=== PATIENT | female | born 1995 | race Caucasian/White ===

== ENCOUNTER 2017-03-25 05:41 | Emergency (ER) | payer MEDICAID, OTHER ==
[~2017-03-25] VITALS: Ht 170.2 cm; Wt 150.0 kg
[~2017-03-25 05:41] MED LIST: BIRTH CONTROL PILL PO; CIPR500T87 PO; METR500T PO; SERT100T PO
[2017-03-25 05:58] VITALS: BP 120/70
== END 2017-03-25 06:25 | disposition home or self-care (01) ==
LOC: ED 06:00
DX: F10.120 Alcohol abuse with intoxication, uncomplicated (principal)
CPT/HCPCS: 99283